=== PATIENT | male | born 1950 | race Caucasian/White ===

== ENCOUNTER 2017-05-03 06:41 | Day surgery (SDC) | payer OTHER ==
[2017-05-03] MEDS ORDERED: fentaNYL 100 MCG/2 ML INJ ONE ×2 (07:17→13:04)
[2017-05-03] MEDS ORDERED: MIDAZOLAM 2 MG/2 ML VIAL ONE ×2 (07:17→13:04)
[2017-05-03] MEDS ORDERED: FLUMAZENIL 0.5 MG/5 ML MDV IVP ONE (07:17)
[2017-05-03] MEDS ORDERED: NALOXONE HCL 0.4 MG/ML INJ ONE (07:17)
[2017-05-03] MEDS ORDERED: MIDAZOLAM 2 MG/2 ML VIAL IVP PRN (08:25)
[2017-05-03] MEDS ORDERED: NALOXONE HCL 0.4 MG/ML INJ IVP PRN (08:25)
[2017-05-03] MEDS ORDERED: MEPERIDINE 25 MG/ML SYR IVP PRN (08:25)
[2017-05-03] MEDS ORDERED: fentaNYL 100 MCG/2 ML INJ IVP PRN (08:25)
[2017-05-03] MEDS ORDERED: FLUMAZENIL 0.5 MG/5 ML MDV IVP PRN (08:25)
--- NOTE | 2017-05-03 09:54 | PDGENHP ---
History & Physical Chief Complaint: BLE claudication, left greater than right History of Present Illness: 66 yo M w DM2, HCV, PAD, CAD s/p stents, s/p left CEA and depression with worsening BLE claudication which severely limits his ability to walk. He believes it is responsible for worsening depression since he can no longer walk his dogs. Seen by Dr. Diaz who referred pt to IR for angio and possible intervention. Pertinent Past, Social, Family History: Tobacco abuse but stopped smoking this yr, IV drug use 20+ yrs ago Relevant Physical Exam: 1+ DP pulses bilat, no CCE, no ulcerations or tissue loss Cardiorespiratory Assessment: RRR, normal resp effort
--- NOTE | 2017-05-03 09:56 | PDPROPOC ---
Sedation Plan of Care Sedation Plan of Care: vital signs stable, mental status noted, patient educated of risks, benefits, alternatives, patient can tolerate sedation ASA Classification: ASA 3 Planned drugs: fentanyl, midazolam Mallampati Score: Class 2 Mallampati Reference Image: Patient passed 3-3-2 rule?: Yes
[2017-05-03] MEDS ORDERED: IOPAMIDOL (ISOVUE-300) 100 ML BTL ONE ×3 (10:36→12:21)
[2017-05-03] MEDS ORDERED: hydrALAZINE 20 MG/ML VIAL ONE (12:33)
[2017-05-03] MEDS ORDERED: OXYCODONE/APAP 5/325 TAB PO PRN (13:46)
[2017-05-03] MEDS ORDERED: ONDANSETRON 4 MG/2 ML VIAL IVP PRN (13:46)
--- NOTE | 2017-05-03 13:46 | PDRADPN ---
Radiology Procedure Note Date of Procedure: 05/03/17 Radiologist: Alexander Mathur Anesthesia: IV Sedation Pre-op Diagnosis: PAD, claudication Post-op Diagnosis: Same Indication: Claudication Procedure: Pelvic angiogram, plasty and stent placement Finding(s): See full dicated report Inf/Abcess present in the surg proc area at time of surgery?: No Depth: Superfical (Skin SQ) EBL: Minimal (~40 mL) Complications: No immediate
[2017-05-03] MEDS ORDERED: NS 1,000 ML IV SCH (14:00)
[2017-05-03] MEDS ORDERED: LISINOPRIL 5 MG TAB PO ONE (14:30)
[2017-05-03] MEDS ORDERED: hydrALAZINE 20 MG/ML VIAL IVP ONE (14:30)
[2017-05-03] MEDS ORDERED: OXYCODONE/APAP 5/325 TAB ONE (14:45)
[2017-05-03 14:58] VITALS: PULSE 62
[2017-05-03 16:47] VITALS: RESP 18; TEMP 97.7
[2017-05-03 18:03] VITALS: BP 140/67
[2017-05-03 18:27] VITALS: O2SAT 92
[2017-05-03] MEDS ORDERED: buPROPion 75 MG TAB PO SCH (21:00)
[2017-05-03] MEDS ORDERED: metFORMIN HCL 500 MG TAB PO SCH (21:00)
[2017-05-03] MEDS ORDERED: traZODone 50 MG TAB PO SCH (21:00)
[2017-05-04] MEDS ORDERED: SPIRONOLACTONE 25 MG TAB PO SCH (09:00)
[2017-05-04] MEDS ORDERED: CLOPIDOGREL BISULFATE 75 MG TAB PO SCH (09:00)
[2017-05-04] MEDS ORDERED: LISINOPRIL 5 MG TAB PO SCH (09:00)
[2017-05-04] MEDS ORDERED: FENOFIBRATE PO SCH (09:00)
[2017-05-04] MEDS ORDERED: [UNRECOGNIZED DRUG - REMARK] PO SCH (09:00)
[2017-05-04] MEDS ORDERED: ATORVASTATIN CALCIUM 20 MG TAB PO SCH (09:00)
== END 2017-05-03 19:28 | disposition home or self-care (01) ==
LOC: FIMAGING 06:41
PROVIDERS: ATTEND Surgery
PROC: 047H34Z Dilation of Right External Iliac Artery with Drug-eluting Intraluminal Device, Percutaneous Approach (ICD-10-PCS; principal; 2017-05-03 09:34)
PROC: 047D34Z Dilation of Left Common Iliac Artery with Drug-eluting Intraluminal Device, Percutaneous Approach (ICD-10-PCS; principal; 2017-05-03 09:34)
PROC: 047C34Z Dilation of Right Common Iliac Artery with Drug-eluting Intraluminal Device, Percutaneous Approach (ICD-10-PCS; principal; 2017-05-03 09:34)
DX: E11.59 Type 2 diabetes mellitus with other circulatory complications (principal); I70.213 Atherosclerosis of native arteries of extremities with intermittent claudication, bilateral legs; I25.10 Atherosclerotic heart disease of native coronary artery without angina pectoris; Z95.5 Presence of coronary angioplasty implant and graft; Z87.891 Personal history of nicotine dependence; F32.9 Major depressive disorder, single episode, unspecified; B18.2 Chronic viral hepatitis C; J43.9 Emphysema, unspecified
CPT/HCPCS: 37221; 75630; 99152; 99153; C1769; C1892; C1894; C1725; C1874; C1876; J0360; J1644; J2250; J2310; J3010; Q9967

== ENCOUNTER → 2017-11-05 | Outpatient (CLI) | payer OTHER | LOC: BHFA 13:30 | PROVIDERS: ATTEND Internal Medicine Cardiovascular Disease | DX: I25.5 Ischemic cardiomyopathy (principal); I25.10 Atherosclerotic heart disease of native coronary artery without angina pectoris; E78.5 Hyperlipidemia, unspecified; I10 Essential (primary) hypertension ==

== ENCOUNTER → 2017-11-25 | Outpatient (CLI) | payer OTHER | LOC: BHFA 11:30 | PROVIDERS: ATTEND Internal Medicine Cardiovascular Disease | DX: I25.10 Atherosclerotic heart disease of native coronary artery without angina pectoris (principal) ==